=== PATIENT | male | born 1980 | race Caucasian/White ===

== ENCOUNTER 2016-11-23 00:03 | Emergency (ER) | payer OTHER ==
[2016-11-23] MEDS ORDERED: Albuterol/Ipratropium NEB.SOL* Albuterol 2.5 MG/Ipratropium 0.5 MG 3 ML INH ONE (00:59)
[2016-11-23] MEDS ORDERED: Aspirin Low Dose CHEW TAB* 81 MG PO ONE (00:59)
[2016-11-23] MEDS ORDERED: methylPREDNISolone 125 MG* 2 ML VIAL IV ONE (01:59)
[2016-11-23 02:02] LABS: Hematocrit 44 % (42-52); Hemoglobin 14.9 g/dl (14.0-18.0); Mean Corpuscular HGB Conc 34 g/dl (31-36); Mean Corpuscular Hemoglobin 28 pg (27-31); Mean Corpuscular Volume 84 fL (80-94); Mean Platelet Volume 8 um3 (7.4-10.4); Red Blood Count 5.27 10^6/ul (4.0-5.4); Red Cell Distribution Width 13 % (10.5-15); White Blood Count 9.3 10^3/ul (3.5-10.8)
[2016-11-23 02:47] LABS: Albumin 4.8 g/dL (3.2-5.2); Calcium 9.8 mg/dL (8.6-10.3); EGFR African American 91.8 (>60); EGFR Non-African American 71.4 (>60); Globulin 2.8 g/dL (2-4); Potassium 3.5 mmol/L (3.5-5.0); Total Bilirubin 0.5 mg/dL (0.2-1.0); Total Protein 7.6 g/dL (6.4-8.9)
[2016-11-23 03:02] VITALS: BP 116/67
--- NOTE | 2016-11-23 03:09 | ED ---
Panda Ralph Rebecca, scribed for Nikky Shepparduel on 11/23/16 at 0030 . HPI Chest Pain - HPI Summary HPI Summary: Pt is a 36 y/o M who presents to ED c/o CP. Pain began suddenly tonight at 2300 secondary to a coughing spell and has been intermittent since onset. Pain is located in the left anterior region with radiation to the L arm and characterized as tightness, currently ranked 4/10. Sx aggravated and alleviated by nothing. Additionally c/o productive cough and SOB secondary to cough. Denies fever. No PMHx CAD, asthma. - History of Current Complaint Chief Complaint: EDChestWallPain Time Seen by Provider: 11/23/16 00:28 Hx Obtained From: Patient Onset/Duration: Started Hours Ago - 2 hours ago, Still Present Time of Onset: 23:00 Timing: Intermittent Initial Severity: Moderate Current Severity: Moderate Pain Intensity: 4 Pain Scale Used: 0-10 Numeric Chest Pain Location: Left Anterior Chest Pain Radiates: Yes Chest Pain Radiates To:: Arm - left Character: Tightness Aggravating Factor(s): Nothing Alleviating Factor(s): Nothing Associated Signs and Symptoms: Positive: Shortness of Breath - secondary to cough, Productive Cough. Negative: Fever - Allergy/Home Medications Allergies/Adverse Reactions: Allergies Allergy/AdvReac Type Severity Reaction Status Date / Time CODEINE Allergy Tachycardia Uncoded 07/25/16 13:37 PMH/Surg Hx/FS Hx/Imm Hx Endocrine/Hematology History: Denies: Hx Diabetes Cardiovascular History: Denies: Hx Hypertension, Hx Pacemaker/ICD History: Denies: Hx Renal Disease Sensory History: Denies: Hx Hearing Aid Neurological History: Reports: Hx Headaches Psychiatric History: Denies: Hx Panic Disorder Infectious Disease History: No Infectious Disease History: Denies: Traveled Outside the [place] in Last 30 Days - Family History Known Family History: Negative: Cardiac Disease, Hypertension, Diabetes - Social History Alcohol Use: Occasionally Substance Use Type: Reports: None Smoking Status (MU): Never Smoked Tobacco Review of Systems Negative: Fever Positive: Chest Pain Positive: Shortness Of Breath - secondary to cough, Cough - productive All Other Systems Reviewed And Are Negative: Yes Physical Exam Triage Information Reviewed: Yes Vital Signs On Initial Exam: Initial Vitals Temp Pulse Resp BP Pulse Ox 98.4 F 81 20 140/81 99 11/23/16 00:06 11/23/16 00:06 11/23/16 00:06 11/23/16 00:06 11/23/16 00:06 Vital Signs Reviewed: Yes Appearance: Positive: Well-Appearing, No Pain Distress Skin: Positive: Warm, Skin Color Reflects Adequate Perfusion, Dry Head/Face: Positive: Normal Head/Face Inspection Eyes: Positive: EOMI, [place] ENT: Positive: Normal ENT inspection Neck: Positive: Supple, Nontender Respiratory/Lung Sounds: Positive: Breath Sounds Present, Wheezes - Occasional wheeze on R side Cardiovascular: Positive: RRR, Pulses are Symmetrical in both Upper and Lower Extremities Abdomen Description: Positive: Nontender, Soft Bowel Sounds: Positive: Present Musculoskeletal: Positive: Normal, Strength/ROM Intact Neurological: Positive: Normal, Sensory/Motor Intact, Alert, Oriented to Person Place, Time Psychiatric: Positive: Affect/Mood Appropriate Diagnostics - Vital Signs Vital Signs Temp Pulse Resp BP Pulse Ox 11/23/16 00:06 98.4 F 81 20 140/81 99 - Laboratory Result Diagrams: 11/23/16 01:50 11/23/16 01:50 Lab Statement: Any lab studies that have been ordered have been reviewed, and results considered in the medical decision making process. - Radiology CXR Xray Interpretation: No Acute Changes Radiology Interpretation Completed By: ED Physician - EKG 0119 Cardiac Rate: NL - bpm EKG Rhythm: Sinus Rhythm - normal EKG Interpretation: No acute ischemia Chest Pain Course/Dx - Course Assessment/Plan: Pt is a 36 y/o M who presents to ED c/o CP for 2 hours. C/o productive cough and SOB secondary to cough. Denies fever. EKG reveals normal sinus rhythm with no acute ischemia. CXR and labs performed reveal negative results. He was given a Duoneb treatment in the ED. Will be d/c to home with a dx of bronchitis and bronchospasms with a followup from his PCP and prescriptions for albuterol and prednisone. - Diagnoses Provider Diagnoses: Bronchitis, Bronchospasm Discharge - Discharge Plan Condition: Stable Disposition: HOME Referrals: Olegario Rodriguez, HEALTH INFORMATICS SPECIALIST [Primary Care Provider] - 3 Days (Follow up with your primary care physician within the next 3 days. ) The documentation as recorded by the Panda garcía Rebecca accurately reflects the service I personally performed and the decisions made by me, Giancarlo Sheppard.
--- NOTE | 2016-11-23 08:07 | RAD ---
INDICATION: Chest pain after coughing. COMPARISON: There are no prior studies available for comparison. TECHNIQUE: Dual-energy PA and lateral views of the chest were obtained. FINDINGS: The heart is within normal limits in size. Mediastinal and hilar contours appear within normal limits. The lungs are clear. No pleural effusion or pneumothorax is seen. IMPRESSION: NO EVIDENCE FOR ACTIVE CARDIOPULMONARY DISEASE.
== END 2016-11-23 03:10 | disposition home or self-care (01) ==
LOC: ED 00:03
DX: J40 Bronchitis, not specified as acute or chronic (principal); R07.9 Chest pain, unspecified; J98.01 Acute bronchospasm; R06.02 Shortness of breath; R05 Cough
CPT/HCPCS: 36415; 71020; 80053; 84484; 85025; 93005; 99283; A9270-GY; J2930

== ENCOUNTER 2018-11-02 14:51 | Emergency (ER) | payer OTHER ==
--- OUTSIDE RECORDS SUMMARY | 2018-11-02 14:55 | XMS REPORT | Continuity of Care Document ---
:1980 External Reference #:[id number] Author Name Agarwal Gretta Care Team Providers Name Role Phone Sabina Dinh MD Primary Care Physician Unavailable Payers Type Date Identification Numbers Payment Provider Subscriber Policy Number: [id number] [employer] Kieran Betts Group Number: [id number] [address] PayID: [id number] [place] [address] Effective: 2012 Policy Number: [id number] [facility] Kieran Betts Expires: 2014 PayID: [id number] [address] [place] [address] Advance Directives Description No Information Available Problems Date Description Provider Status Onset: 10/26/2012 Migraine Brittney Nichols M.D. Active Onset: 09/26/2012 Headache Brittney Nichols M.D. Active Family History Date Family Member(s) Problem(s) Comments Father Smoker in the past Father 60 Mother 57 Social History Type Date Description Comments Sex Unknown Marital Status Lives With Family Occupation Human resources ETOH Use Drinks Alcoholic Beverages Occasionally Tobacco Use Start: Unknown Patient has never smoked Recreational Drug Use Denies Drug Use Smoking Status Reviewed: 10/04/18 Patient has never smoked Exercise Type/Frequency Running twice a week Allergies, Adverse Reactions, Alerts Date Description Reaction Status Severity Comments 09/26/2012 Codeine irregular heart rate Active Severe Medications Medication Date Status Form Strength Qnty SIG Indications Ordering Provider Baclofen 10/04/ Active Tablets 10mg 30tabs take M54.2 Olegario 2018 10/31-1 tab AARON Rodriguez every 8 hours as needed for muscle spasm Tramadol HCL 10/04/ Active Tablets 50mg 28tabs 1-2 M54.2 Olegario 2018 tablets AARON Rodriguez every 12 hours as needed for pain. Medrol 10/04/ Hx TBPK 4mg 21unit as M54.2 Olegario 2018 - s directed AARON Rodriguez 10/11/ on 2018 package Proair HFA 08/23/ Active Aerosol 108(90Base 8.500g 2 puffs R05 Ilng 2016 ) mcg/Act m four Le, times a [employer] day as needed Sumatriptan 01/01/ Active Tablets 50mg 9tabs take one G43.909 Olegario Succinate 2014 tablet at AARON Rodriguez onset of headache. if no relief you can take a second tab 2 hours later. Cyclobenzaprine 01/01/ Active Tablets 5mg 30tabs take one G43.909 Olegario HCL 2014 tablet by AARON Rodriguez mouth every 8 hours prn. may take a second tablet if first not effetive. Excedrin Migraine / Active Tablets 250-250-65 as needed Unknown 0000 mg Prednisone 08/23/ Hx Tablets 5mg 28tabs taper [address] 2016 - dose Le, 10/04/ start [employer] 2017 with 7 tabs (35mg) and decrease by one tab each in the morning, 6,5,4,3,2 ,1 Ondansetron 01/02/ Hx Tablets 4mg 30tabs dissolve Olegario 2014 - Dispers one AARON Rodriguez 08/23/ tablet 2016 orally every 8 hours as needed for nausea. Propranolol HCL 07/04/ Hx Tablets 20mg 30tabs take one G43.019 Olegario 2013 - tablet AARON Rodriguez 08/23/ daily for 2016 migraine prophylax is. Sumatriptan 09/26/ Hx Tablets 25mg 9tabs take 1 784.0 Olegario Succinate 2011 - tablet by AARON Rodriguez 01/01/ mouth 2 2014 times a day at first sign of migraine may repeat dose in 2 hours as needed for migraine headache Vicodin / Hx Tablets 5-500mg 60tabs 1-2 Unknown 0000 - tablets 12/28/ every 4-6 2015 hours as needed Immunizations CPT Code Status Date Vaccine Lot # [id number] Given 07/04/2014 Tdap - Tetanus/Diptheria/Acellular Pertussis [id number] Vital Signs Date Vital Result Comment 10/04/2018 8:43am Height 73 inches 6'1" Weight 225.00 lb Heart Rate 77 /min BP Systolic 116 mmHg BP Diastolic 72 mmHg Body Temperature 97.0 F O2 % BldC Oximetry 97 % BMI (Body Mass Index) 29.7 kg/m2 08/23/2017 2:19pm Height 73 inches 6'1" Weight 223.12 lb Heart Rate 89 /min BP Systolic 122 mmHg BP Diastolic 78 mmHg Body Temperature 97.6 F O2 % BldC Oximetry 95 % BMI (Body Mass Index) 29.4 kg/m2 01/22/2016 3:37pm Weight 220.00 lb Heart Rate 68 /min BP Systolic Sitting 122 mmHg BP Diastolic Sitting 74 mmHg Respiratory Rate 15 /min Body Temperature 98.1 F O2 % BldC Oximetry 98 % 06/22/2015 10:37am Weight 218.00 lb Heart Rate 88 /min BP Systolic Sitting 126 mmHg BP Diastolic Sitting 90 mmHg Body Temperature 98.0 F Pain Level 7 neck 01/01/2015 2:52pm Weight 209.75 lb Heart Rate 73 /min BP Systolic Sitting 134 mmHg BP Diastolic Sitting 74 mmHg 11/07/2014 3:09pm Height 73 inches 6'1" Weight 212.75 lb Heart Rate 82 /min BP Systolic Sitting 110 mmHg BP Diastolic Sitting 78 mmHg Body Temperature 98.2 F O2 % BldC Oximetry 97 % BMI (Body Mass Index) 28.1 kg/m2 08/01/2014 2:29pm Weight 214.50 lb Heart Rate 80 /min BP Systolic Sitting 140 mmHg 122/82 BP Diastolic Sitting 90 mmHg 122/82 Body Temperature 97.6 F O2 % BldC Oximetry 98 % 07/04/2014 10:10am Weight 212.25 lb Heart Rate 72 /min BP Systolic Sitting 100 mmHg Recheck 114/74 BP Diastolic Sitting 60 mmHg Recheck 114/74 Body Temperature 97.1 F 10/26/2012 3:55pm Height 73.25 inches 6'1.25" Weight 215.00 lb Heart Rate 62 /min BP Systolic Sitting 122 mmHg BP Diastolic Sitting 74 mmHg BMI (Body Mass Index) 28.2 kg/m2 09/26/2012 3:34pm Height 73.25 inches 6'1.25" Weight 212.00 lb Heart Rate 60 /min BP Systolic Sitting 120 mmHg BP Diastolic Sitting 78 mmHg BMI (Body Mass Index) 27.8 kg/m2 Results Test Date Facility Test Result H/L Range Note CBC Auto Diff 11/23/2016 [facility] White Blood 9.3 10^3/uL N 3.5-10.[address] [place] [address] [phone] Red Blood Count 5.27 10^6/uL N 4.0-5.4 Hemoglobin 14.9 g/dL N 14.0-18.0 Hematocrit 44 % N 42-52 Mean Corpuscular Volume 84 fL N 80-94 Mean Corpuscular Hemoglobin 28 pg N 27-31 Mean Corpuscular HGB Conc 34 g/dL N 31-36 Red Cell Distribution Width 13 % N 10.5-15 Platelet Count 251 10^3/uL N 150-450 Mean Platelet Volume 8 um3 N 7.4-10.4 Abs Neutrophils 6.3 10^3/uL N 1.5-7.7 Abs Lymphocytes 2.0 10^3/uL N 1.0-4.8 Abs Monocytes 0.8 10^3/uL N 0-0.8 Abs Eosinophils 0.1 10^3/uL N 0-0.6 Abs Basophils 0.1 10^3/uL N 0-0.2 Abs Nucleated RBC 0.01 10^3/uL N Granulocyte % 68.1 % N 38-83 Lymphocyte % 21.4 % Low 25-47 Monocyte % 8.1 % N 1-9 Eosinophil % 1.5 % N 0-6 Basophil % 0.9 % N 0-2 Nucleated Red Blood Cells % 0.1 N Comp Metabolic Panel 11/23/2016 [facility] Sodium 136 mmol/L N 133-[address] [place] [address] [phone] Potassium 3.5 mmol/L N 3.5-5.0 Chloride 100 mmol/L Low 101-111 Co2 Carbon Dioxide 29 mmol/L N 22-32 Anion Gap 7 mmol/L N 2-11 Glucose 100 mg/dL N 70-100 Blood Urea Nitrogen 14 mg/dL N 6-24 Creatinine 1.17 mg/dL N 0.67-1.17 BUN/Creatinine Ratio 12.0 N 8-20 Calcium 9.8 mg/dL N 8.6-10.3 Total Protein 7.6 g/dL N 6.4-8.9 Albumin 4.8 g/dL N 3.2-5.2 Globulin 2.8 g/dL N 2-4 Albumin/Globulin Ratio 1.7 N 1-3 Total Bilirubin 0.50 mg/dL N 0.2-1.0 Alkaline Phosphatase 58 U/L N 34-104 Alt 20 U/L N 7-52 Ast 15 U/L N 13-39 Egfr Non- 71.4 N >60 Egfr 91.8 N >60 1 Laboratory test 11/23/2016 [facility] Troponin-I (TnI) 0.00 ng/ mL N <0.04 2 finding [address] [place] [address] [phone] Laboratory test 06/24/2015 [facility] Erythrocyte Sed 7 mm/Hr N 0-[address] [place] [address] [phone] C Reactive Protein 2.99 mg/L N < 5.00 3 Elizabeth (Antinuclear Antibodies) Negative N Negative Rheumatoid Factor <15 IU/mL N <15 4 Cyclic Citrullinated Pep Igg <15.6 U N 5 Lyme Disease Serology Negative N Negative 6 Lipid Profile 11/04/2014 [facility] Triglycerides 92 mg/dL N 7, 8 (Trig/Chol/HDL) [address] [place] [address] [phone] Cholesterol 187 mg/dL N 9 HDL Cholesterol 58.3 mg/dL N 10 LDL Cholesterol 110 mg/dL N 11 Laboratory test finding 11/04/2014 [facility] Glucose 95 mg/dL N 70-100 12 [address] [place] [address] [phone] 1 Because ethnic data is not always readily available, this report includes an eGFR for both -Americans and non- Americans. The National Kidney Disease Education Program (NKDEP) does not endorse the use of the MDRD equation for patients that are not between the ages of 18 and 70, are , have extremes of body size, muscle mass, or nutritional status, or are non- or non-. According to the National Kidney Foundation, irrespective of diagnosis, the stage of the disease is based on the level of kidney function: Stage Description GFR(mL/min/1.73 m(2)) 1 Kidney damage with normal or decreased GFR 90 2 Kidney damage with mild decrease in GFR 60-89 3 Moderate decrease in GFR 30-59 4 Severe decrease in GFR 15-29 5 Kidney failure <15 (or dialysis) 2 99th percentile=0.04 ng/mL Troponin results at [facility] and [facility] are not interchangeable. 3 Acute inflammation: >10.00 4 Test Performed by: [place] [address] Plaster Lather: Honorio Mcneil II, M.D., Ph.D. 5 REFERENCE VALUE <20.0 (Negative) Test Performed by: [place] [address] Plaster Lather: Honorio Mcneil II, M.D., Ph.D. 6 Serologic response to B. burgdorferi infection is not detected, but cannot rule out early infection during which low or undetectable antibody levels to B. burgdorferi may be present. If clinically indicated, a new serum specimen should be submitted in 7-14 days. Test Performed by: [place] [address] Plaster Lather: Honorio Mcneil II, M.D., Ph.D. 7 FASTING 10 HOUR 8 Desirable <150 Borderline high 150-199 High 200-499 Very High >500 9 Desirable <200 Borderline high 200-239 High >239 10 Low <40 Desirable: 40-60 High: >60 11 Desirable <100 Near Optimal 100-129 Borderline high 130-159 High 160-189 Very High >189 12 FASTING 10 HOUR Procedures Description No Information Available Encounters Type Date Location Provider Dx Diagnosis Office Visit 08/23/2017 2:30p [facility] Internal Medicine Ling Le NP R05 Cough - [address] M54.2 Cervicalgia Office Visit 03/13/2017 [facility] Dermatology Nahid Farfan, D18.01 Hemangioma of skin 4:30p MD and subcutaneous tissue Office Visit 01/22/2016 [facility] Internal Olegario Rodriguez NP M54.2 Cervicalgia 3:40p Medicine [facility] Office Visit 06/22/2015 [facility] Internal Olegario Rodriguez NP 723.1 Cervicalgia 10:40a Medicine [facility] 346.11 Migraine W/O Aura W/Intractable W/O Status Migrainosus 780.79 Malaise And Fatigue Other Office Visit 01/01/2015 3:00p [facility] Internal Olegario Rodriguez, 346.90 Migraine Unspec Medicine - [employer] W/O Intractable [place] W/O Status Migrainosus Office Visit 11/07/2014 3:00p [facility] Internal [place] V70.0 [facility] 346.90 Migraine Unspec W/O Intractable W/O Status Migrainosus 723.1 Cervicalgia 278.00 Obesity Unspec Office Visit 08/01/2014 2:30p [facility] Internal Olegario Rodriguez, 346.90 Migraine Unspec Medicine - [employer] W/O Intractable [place] W/O Status Migrainosus Office Visit 07/04/2014 10:00a [facility] Internal Olegario Rodriguez, 346.11 Migraine W/ O Aura Medicine - [employer] W/Intractable W/O [place] Status Migrainosus V06.1 Eatuonbocj-Evuzgbb-Quwyuvim Combined (DTaP) Office Visit 10/26/2012 3:20p [facility] Internal Brittney Nichols, 346.90 Migraine Unspec Medicine - M.DRoselyn W/O Intractable [place] W/O Status Migrainosus Office Visit 09/26/2012 3:00p [facility] Internal Brittney Nichols, 784.0 Headache Medicine - MHelena [place] Plan of Treatment 10/04/2018 - Olegario Rodriguez, NPM54.2 CervicalgiaNew Medication:Baclofen 10 mg - take 1/2-1 tab every 8 hours as needed for muscle spasmTramadol HCL 50 mg - 1-2 tablets every 12 hours as needed for pain.Medrol 4 mg - as directed on packageNew Xrays:MRI Cervical Spine Wo, Ordered: 10/04/18New Therapy:Physical TherapyComments:I am ordering an MRI of your neck based on the persistence and worsening in symptoms. Complete the medrol pack. Take this with food. Do not take the Aleve with this. You can try using the baclofen. This may make you tired. Do not take it with the cyclobenzaprine.G43.009 Migraine without aura, not intractable, without status migraComments:Continue with the sumatriptan and cyclobenzaprine as needed for headaches.
[2018-11-02 14:57] VITALS: BP 142/93
--- NOTE | 2018-11-02 15:11 | UC ---
Throat Pain/Nasal Ye HPI - History of Current Complaint Chief Complaint: UCRespiratory Stated Complaint: SORE THROAT Time Seen by Provider: 11/02/18 15:00 Pain Intensity: 5 - Allergies/Home Medications Allergies/Adverse Reactions: Allergies Allergy/AdvReac Type Severity Reaction Status Date / Time codeine Allergy Severe Tachycardia Verified 11/02/18 14:57 Home Medications: Home Medications Baclofen TAB* [Lioresal TAB*] 11/02/18 [History] Naproxen Sodium [Aleve] 220 mg PO ONCE PRN 11/02/18 [History Confirmed 11/02/18] SUMAtriptan TAB* [Imitrex TAB*] 11/02/18 [History] predniSONE TAB* [Deltasone 1 MG TAB*] 11/02/18 [History] PMH/Surg Hx/FS Hx/Imm Hx Previously Healthy: Yes - Surgical History Surgical History: None - Family History Known Family History: Negative: Cardiac Disease, Hypertension, Diabetes - Social History Alcohol Use: Occasionally Substance Use Type: None Smoking Status (MU): Never Smoked Tobacco Review of Systems All Other Systems Reviewed And Are Negative: Yes Constitutional: Positive: Negative Skin: Positive: Negative Eyes: Positive: Negative ENT: Positive: Sore Throat, Nasal Discharge, Sinus Congestion, Sinus Pain/ Tenderness Respiratory: Positive: Negative Cardiovascular: Positive: Negative Gastrointestinal: Positive: Negative Motor: Positive: Negative Neurovascular: Positive: Negative Musculoskeletal: Positive: Negative Neurological: Positive: Negative Psychological: Positive: Negative Is Patient Immunocompromised?: No Physical Exam Triage Information Reviewed: Yes Appearance: Well-Appearing, No Pain Distress, Well-Nourished Vital Signs: Initial Vital Signs Temp 97.4 F 11/02/18 14:53 Pulse 83 11/02/18 14:53 Resp 16 11/02/18 14:53 BP 142/93 11/02/18 14:53 Pulse Ox 98 11/02/18 14:53 Vital Signs Reviewed: Yes Eye Exam: Normal Eyes: Positive: Conjunctiva Clear ENT: Positive: Pharyngeal erythema, Nasal congestion, Nasal drainage, TMs normal , Uvula midline - UVULA SLIGHTLY SWOLLEN. AIRWAY OPEN. NO PERITONSILLAR ABSCESS ON EXAM.. Negative: Tonsillar swelling, Tonsillar exudate, Muffled voice, Hoarse voice Neck exam: Normal Neck: Positive: Supple Respiratory: Positive: Lungs clear, Normal breath sounds, No respiratory distress. Negative: No accessory muscle use, Respiratory distress, Stridor Cardiovascular: Positive: RRR Musculoskeletal Exam: Normal Musculoskeletal: Positive: Strength Intact, ROM Intact Neurological Exam: Normal Neurological: Positive: Alert, Muscle Tone Normal Psychological Exam: Normal Psychological: Positive: Age Appropriate Behavior Skin Exam: Normal Throat Pain/Nasal Course/Dx - Differential Dx/Diagnosis Provider Diagnosis: Pharyngitis, Uvular swelling Discharge - Sign-Out/Discharge Documenting (check all that apply): Patient Departure All imaging exams completed and their final reports reviewed: No Studies - Discharge Plan Condition: Stable Disposition: HOME Prescriptions: Amoxicillin/Clavulanate TAB* [Augmentin TAB 875*] 875 mg PO BID #20 tab predniSONE TAB* [Deltasone 20 MG TAB*] 40 mg PO DAILY #10 tab Patient Education Materials: Pharyngitis (ED) Referrals: Olegario Rodriguez, SHOVEL OPERATOR [Primary Care Provider] - Additional Instructions: FOLLOW UP WITH YOUR DOCTOR IF NOT COMPLETELY IMPROVED. GO TO THE EMERGENCY DEPARTMENT FOR ANY WORSENING OF YOUR CONDITION; DIFFICULTY SWALLOWING OR BREATHING OR QUESTIONS OR CONCERNS. - Billing Disposition and Condition Condition: STABLE Disposition: Home
== END 2018-11-02 15:50 | disposition home or self-care (01) ==
LOC: UCEAST 14:51
DX: J02.9 Acute pharyngitis, unspecified (principal); R22.0 Localized swelling, mass and lump, head; Z88.5 Allergy status to narcotic agent
CPT/HCPCS: 87651; 99212; G0463

== ENCOUNTER 2019-09-14 12:52 | Emergency (ER) | payer OTHER ==
--- NOTE | 2019-09-14 14:56 | UC ---
Respiratory Complaint HPI - HPI Summary HPI Summary: 38-year-old male presents with complaints of a persistent cough. States approximately 9 days ago he came down with flulike illness including general malaise, body aches, fevers, chills, nasal congestion, runny nose, sore throat, and cough. States symptoms lasted about 4 days and then began to improve with the exception of the cough. States cough is occasionally productive for clear sputum. No fever or chills at present. Denies chest pain, palpitations, or shortness of breath. - History of Current Complaint Chief Complaint: UCRespiratory Stated Complaint: COUGH, AND CHEST CONGESTION Time Seen by Provider: 09/14/19 14:54 Hx Obtained From: Patient Pain Intensity: 0 - Allergies/Home Medications Allergies/Adverse Reactions: Allergies Allergy/AdvReac Type Severity Reaction Status Date / Time codeine Allergy Severe Tachycardia Verified 09/14/19 13:18 Home Medications: Home Medications Diphenhydra/Phenyleph/Acetamin [Theraflu Expressmax Night Cplt] 1 tab PO Q12HR 09/14/19 [History Confirmed 09/14/19] Doxylam/PE/Dm/Acetaminophen/GG [Vicks Dayquil/Nyquil Marianela] 1 liq PO Q6H [History Confirmed 09/14/19] PMH/Surg Hx/FS Hx/Imm Hx Previously Healthy: Yes - Denies significant PMH Neurological History: Migraine - Surgical History Surgical History: None - Family History Known Family History: Positive: Non-Contributory - Social History Occupation: Employed Full-time Lives: With Family Alcohol Use: Weekly Alcohol Amount: 4-6 drinks/week Substance Use Type: None Smoking Status (MU): Never Smoked Tobacco Review of Systems All Other Systems Reviewed And Are Negative: Yes Constitutional: Negative: Fever, Chills Eyes: Negative: Drainage, Eye Redness ENT: Positive: Nasal Discharge, Sinus Congestion. Negative: Sore Throat, Ear Ache, Sinus Pain/Tenderness Respiratory: Positive: Cough. Negative: Shortness Of Breath Cardiovascular: Negative: Palpitations, Chest Pain Gastrointestinal: Positive: Negative Genitourinary: Positive: Negative Musculoskeletal: Positive: Negative Neurological: Positive: Negative Is Patient Immunocompromised?: No Physical Exam - Summary Physical Exam Summary: GENERAL APPEARANCE: Well developed, well nourished, alert and cooperative, and appears to be in no acute distress. EYES: Conjunctiva clear. No drainage. EARS: External auditory canals and tympanic membranes clear, hearing grossly intact. NOSE: Mild nasal congestion. No nasal discharge. THROAT: Pharynx normal. No tonsilar inflammation, swelling, exudate, or lesions. Uvula midline. Oral cavity normal. Teeth and gingiva in good general condition. NECK: Neck supple, non-tender without lymphadenopathy. CARDIAC: Normal S1 and S2. No S3, S4 or murmurs. Rhythm is regular. There is no peripheral edema, cyanosis or pallor. Extremities are warm and well perfused. Capillary refill is less than 2 seconds. Peripheral pulses intact. LUNGS: Clear to auscultation without rales, rhonchi, wheezing or diminished breath sounds. Dry, non-productive cough. ABDOMEN: Positive bowel sounds. Soft, nondistended, nontender. No guarding or rebound. No masses or hepatosplenomegally. MUSKULOSKELETAL: ROM intact to all extremities. No joint erythema or tenderness. Normal muscular development. Normal gait. SKIN: Skin normal color, texture and turgor with no lesions or eruptions. Triage Information Reviewed: Yes Vital Signs: Initial Vital Signs Temp 98.0 F 09/14/19 13:15 Pulse 81 09/14/19 13:15 Resp 16 09/14/19 13:15 BP 113/73 09/14/19 13:15 Pulse Ox 100 09/14/19 13:15 Vital Signs Reviewed: Yes Respiratory Course/Dx - Course Course Of Treatment: 38-year-old male presents with complaints of a persistent cough. States approximately 9 days ago he came down with flulike illness including general malaise, body aches, fevers, chills, nasal congestion, runny nose, sore throat, and cough. States symptoms lasted about 4 days and then began to improve with the exception of the cough. States cough is occasionally productive for clear sputum. No fever or chills at present. Denies chest pain, palpitations, or shortness of breath. Afebrile. Vital signs stable. Patient had mild nasal congestion, clear bilateral breath sounds, a dry nonproductive cough, and otherwise unremarkable exam. Discussed with the patient that the cough associated with upper respiratory infections can often linger for a couple weeks even after other symptoms have resolved and of recommended symptomatic treatment at this time including fluticasone nasal spray 2 sprays each nostril once daily and Tessalon Perles one capsule every 8 hours as needed for cough. He is to follow-up with his primary care provider in 5-7 days if symptoms are not improving. Anticipatory guidance and warning symptoms reviewed with the patient. Verbalizes understanding and agrees with plan of care. - Differential Dx/Diagnosis Differential Diagnosis/HQI/PQRI: Bronchitis, Influenza, Lower Resp Infection Provider Diagnosis: URI with cough and congestion Discharge ED - Sign-Out/Discharge Documenting (check all that apply): Patient Departure All imaging exams completed and their final reports reviewed: No Studies - Discharge Plan Condition: Stable Disposition: HOME Prescriptions: Benzonatate CAP* [Tessalon 100 MG CAP*] 100 mg PO TID PRN #21 cap PRN Reason: Cough Fluticasone NASAL SPRAY 50MCG* [Flonase NASAL SPRAY 50MCG*] 2 spray BOTH NARES DAILY #1 btl Patient Education Materials: Upper Respiratory Infection (ED) Referrals: Olegario Rodriguez [facility]ER [Primary Care Provider] - 5 Days Additional Instructions: Your history and exam are consistent with a viral upper respiratory infection. Viral infections do not respond to antibiotics and are limited to the treatment of symptoms. Be aware that the cough associated with upper respiratory infections may persist for 2-3 weeks even if other symptoms have improved. Use a saline rinse kit such as Neti Pot or NeilMed at least twice a day to help thin secretions and promote drainage of the sinuses. Use fluticasone (Flonase) nasal spray 2 sprays each nostril once daily. Use Tessalon Perles 1 cap every 8 hours as needed for cough. Take over the counter acetaminophen (Tylenol) or ibuprofen (Advil, Motrin) according to directions as needed for pain or fever. Follow up with your primary care provider in 5-7 days if symptoms persist. Seek immediate medical attention in the emergency room if you have fever greater than 100.5 F despite taking acetaminophen or ibuprofen, have chest pain , difficulty breathing, are unable to swallow, or have any worsening of symptoms. - Billing Disposition and Condition Condition: STABLE Disposition: Home
[2019-09-14 15:27] VITALS: BP 125/84
== END 2019-09-14 15:44 | disposition home or self-care (01) ==
LOC: UCEAST 12:52
DX: J06.9 Acute upper respiratory infection, unspecified (principal); R05 Cough; R09.81 Nasal congestion; Z88.5 Allergy status to narcotic agent
CPT/HCPCS: 99212; G0463